=== PATIENT | male | born 1965 | race Caucasian/White ===

== ENCOUNTER → 2016-08-17 09:44 | Outpatient (CLI) | payer BC | END | disposition home or self-care (01) | LOC: D.MRI 09:44 | DX: M54.16 Radiculopathy, lumbar region (principal) ==

== ENCOUNTER → 2016-11-26 12:45 | Outpatient (CLI) | payer BC | END | disposition home or self-care (01) | LOC: D.ER 12:45 | DX: T14.8 Other injury of unspecified body region (principal) ==

== ENCOUNTER 2016-12-15 18:33 | Emergency (ER) | payer BC ==
[2016-12-15 20:10] LABS: BASOPHILS 0.2 % (0-2); EOSINOPHILS 1.7 % (0-7); HEMATOCRIT 38.1 % (42.0-54.0); HEMOGLOBIN 11.7 g/dL (13.5-17.5); IMMATURE GRANULOCYTES 0.1 % (0-5); LYMPHOCYTES 22.8 % (15-50); MCH 22.9 pg (26.0-34.0); MCHC 30.7 g/dL (31.0-37.0); MCV 74.4 fL (80.0-100.0); MEAN PLATELET VOLUME 9.6 fL (7.4-10.4); MONOCYTES 6.3 % (2-11); NEUTROPHILS 68.9 % (40-80); PLATELET COUNT 291 10x3/uL (130-400); RBC 5.12 10x6/uL (4.20-6.10); WBC 8.1 10x3/uL (4.8-10.8)
[2016-12-15 20:21] LABS: INR 1.01 (0.85-1.17); PROTIME 13.1 SECONDS (11.6-15.0)
[2016-12-15 20:28] LABS: ALBUMIN 3.8 g/dL (3.4-5.0); ALKALINE PHOSPHATASE 110 U/L (46-116); ALT (SGPT) 26 U/L (10-68); BILIRUBIN - TOTAL 0.31 mg/dL (0.2-1.3); CALC OSMOLALITY 278 mosm/kg (275-300); CALCIUM 9.3 mg/dL (8.5-10.1); CARBON DIOXIDE 25.3 mmol/L (21.0-32.0); CHLORIDE - SERUM 102 mmol/L (98-107); CREATININE - SERUM 1.2 mg/dL (0.6-1.3); GLUCOSE 98 mg/dL (74-106); POTASSIUM - SERUM 3.8 mmol/L (3.5-5.1); PROTEIN - SERUM 8.1 g/dL (6.4-8.2); SODIUM 140 mmol/L (136-145); UREA NITROGEN 12 mg/dL (7-18); eGFR NON AFRICAN AMERICAN 67 mL/min (90-120)
[2016-12-15 20:41] LABS: CREATINE KINASE 118 UL (21-232); PRO BNP 132 pg/mL (0-125); TROPONIN-I < 0.017 ng/mL (0.000-0.060)
== END 2016-12-15 20:43 | disposition home or self-care (01) ==
LOC: D.ER 18:33
PROVIDERS: Nurse Practitioner Family
DX: S81.801A Unspecified open wound, right lower leg, initial encounter (principal); X58.XXXA Exposure to other specified factors, initial encounter; Y93.89 Activity, other specified; Y92.89 Other specified places as the place of occurrence of the external cause

== ENCOUNTER → 2017-03-24 10:24 | Outpatient (CLI) | payer BC | END | disposition home or self-care (01) | LOC: D.RAD 10:24 | DX: R06.02 Shortness of breath (principal) ==

== ENCOUNTER → 2017-04-29 12:56 | Outpatient (CLI) | payer BC ==
[2017-04-29 15:40] LABS: CREATININE - SERUM 0.9 mg/dL (0.6-1.3)
== END | disposition home or self-care (01) ==
LOC: D.LABREF 12:56
PROVIDERS: Student in an Organized Health Care Education/Training Program
DX: S71.001A Unspecified open wound, right hip, initial encounter (principal)

== ENCOUNTER → 2017-05-06 10:59 | Outpatient (CLI) | payer BC ==
[2017-05-06 12:43] LABS: CREATININE - SERUM 1.1 mg/dL (0.6-1.3); VANCOMYCIN - TROUGH 9.4 ug/mL (10.0-20.0)
== END | disposition home or self-care (01) ==
LOC: D.LABREF 10:59
PROVIDERS: Student in an Organized Health Care Education/Training Program
DX: Z51.81 Encounter for therapeutic drug level monitoring (principal); Z79.2 Long term (current) use of antibiotics

== ENCOUNTER → 2017-05-14 10:35 | Outpatient (CLI) | payer BC ==
[2017-05-14 11:31] LABS: BASOPHILS 0.5 % (0-2); EOSINOPHILS 5.3 % (0-7); HEMATOCRIT 34.9 % (42.0-54.0); IMMATURE GRANULOCYTES 0.5 % (0-5); MCH 25.1 pg (26.0-34.0); MCHC 31.5 g/dL (31.0-37.0); MCV 79.5 fL (80.0-100.0); MEAN PLATELET VOLUME 10.9 fL (7.4-10.4); MONOCYTES 14.1 % (2-11); NEUTROPHILS 63.6 % (40-80); RBC 4.39 10x6/uL (4.20-6.10); RDW 15.1 % (11.5-14.5); WBC 4.2 10x3/uL (4.8-10.8)
[2017-05-14 11:42] LABS: PLATELET COUNT 226 10x3/uL (130-400)
[2017-05-14 11:45] LABS: CREATININE - SERUM 0.9 mg/dL (0.6-1.3); VANCOMYCIN - TROUGH 10.1 ug/mL (10.0-20.0)
== END | disposition home or self-care (01) ==
LOC: D.LABREF 10:35
PROVIDERS: Student in an Organized Health Care Education/Training Program
DX: Z51.81 Encounter for therapeutic drug level monitoring (principal); Z79.2 Long term (current) use of antibiotics

== ENCOUNTER → 2018-06-06 12:33 | Outpatient (CLI) | payer BC | END | disposition home or self-care (01) | LOC: D.MRI 12:33 | PROVIDERS: ATTEND Family Medicine | DX: M54.16 Radiculopathy, lumbar region (principal) ==

== ENCOUNTER → 2019-07-02 13:15 | Outpatient (CLI) | payer MEDICARE, BC ==
--- NOTE | 2019-07-05 11:53 | ST ---
PATIENT:ARNALDO HANDY MEDICAL RECORD: [id number] SEX: M LOCATION:[facility] ORDER #: ADMISSION DATE: 07/02/19 AGE OF PATIENT: 54 REFERRING PHYSICIAN: INTERPRETING PHYSICIAN: HOWARD RUVALCABA MD DATE OF SERVICE: 07/02/2019 TREADMILL REPORT TECHNIQUE: Baseline ECG is normal. Exercised for 10 minutes on Kristofer protocol. Maximum heart rate 151 beats per minute, greater than 85% maximum predicted. No ECG changes of ischemia. No symptoms of ischemia. Normal blood pressure response to exercise. No arrhythmias noted. Good exercise tolerance for age. TRANSINT:[id number] Voice Confirmation ID: [id number] DOCUMENT ID: [id number] HOWARD RUVALCABA MD at 1153 CC: [id number] DICTATION DATE: 07/03/19 1336 VIDEO ENGINEER: 07/03/19 1345 DEP CLI 07/02/[address] [id number]
== END | disposition home or self-care (01) ==
LOC: D.HCCARDIO 13:15
PROVIDERS: ATTEND Internal Medicine Interventional Cardiology
DX: I20.9 Angina pectoris, unspecified (principal)

== ENCOUNTER → 2020-01-10 15:33 | Outpatient (CLI) | payer MEDICARE, BC | END | disposition home or self-care (01) | LOC: D.RAD 15:33 | PROVIDERS: ATTEND Family Medicine | DX: M54.16 Radiculopathy, lumbar region (principal); M25.552 Pain in left hip; M54.12 Radiculopathy, cervical region ==

== ENCOUNTER → 2020-01-23 08:57 | Outpatient (CLI) | payer MEDICARE, BC ==
--- NOTE | ~2020-01-23 | HEMODYNAMI ---
PATIENT:RONNI HANDY MEDICAL RECORD: [id number] : 61 [id number] ADMISSION DATE: 01/23/20 Generatedon:01/23/202014:03 Patient name: RONNI HANDY Patient #: [id number] SSN: D OB: 1965 Date of study: 01/23/2020 Page: Of Hemodynamic Procedure Report Patient Data Patient Demographics Procedure consent was obtained First Name: RONNI Gender: Male Last Name: ROZINA : 1965 [facility] Initial: E Age: 54 year(s) Patient #: [id number] Race: Unknown Additional ID: [id number] Contact details Address: [address] [place] [address] State: [place] City: [facility] Zip code: [address] Admission Admission Data Admission Date: 01/23/2020 Admission Time: 8:57 Procedure Procedure Types Cath Procedure Peripheral Cath Diagnostic Procedure Miscellaneous Aspiration/Injection (Joint) Procedure Description Procedure Date Procedure Date: 01/23/2020 Procedure Start Time: 10:26 Procedure Staff Name Function Kosta Rainey RT Scrub Ronni Harrison MD Performing Physician Arielle Barnes RT Monitor Alondra PACKER RN Nurse Procedure Data Cath Procedure Fluoroscopy Diagnostic fluoroscopy Total fluoroscopy Time: 0.3 time: 0.3 min min Diagnostic fluoroscopy Total fluoroscopy dose: 3.5 dose: 3.5 mGy mGy Contrast Material Contrast Material Type Amount (ml) Isovue 200 10 Hemodynamics Rest Pre Cath Intra NCS Post Cath Procedure Log Time Note 9:31:00 Procedure Status Elective Heart Cath (OP). 9:31:04 Kosta Rainey RT (R) (CV) sent for patient. Start room use. 9:31:08 Time tracking: Regular hours (M-F 7:00 - 5:00) 9:31:24 Patient received from Outpatients to IR Alert and oriented. Tansferred to table in Supine position. 9:31:29 Signed procedure consent form obtained from patient. 9:31:32 Correct patient and procedure confirmed by team. 9:33:59 Pre-procedure instructions explained to patient. 9:34:00 Pre-op teaching completed and patient verbalized understanding. 9:34:16 PT STATES NO ALLERGIES 9:34:21 Is patient on blood thinner?No 9:34:48 Left Hip was prepped with betadine and draped in sterile fashion. 10:25:22 Physician arrived 10:25:23 Final Timeout: patient, procedure, and site verified with staff and physician. All members of the team are in agreement. 10:25:23 --------ALL STOP TIME OUT------ 10:25:26 Left groin site verified by team. 10:25:32 Sedation plan: Local Anesthetic Medication:Lidocaine 10:26:01 Procedure started. 10:26:02 Full Disclosure recording started 10:26:08 Local anesthetic to Left Hip with Lidocaine 1% by Ronni Harrison MD.INITIAL ACCESS ONLY 10:26:10 SAFE-T PLUS MYELOGRAM TRAY opened to sterile field. 10:32:33 Procedure ended.(Physican Out) 10:32:37 Fluoroscopy time 00.30 minutes. 10:32:42 Flurop Dose total: 3.5 10:33:05 Contrast amount:Isovue 200 10ml. 10:33:43 BANDAIDE APPLIED TO SITE SITE STABLE PT SENT HOME 10:34:20 Full Disclosure recording stopped 10:39:42 Fluoroscopy dose: 3.5 mGy Device Usage Item Name Manufacture Quantity Catalog Hospital Part Current Minimal Lot# / Number Charge Number Stock Stock Serial# Code SAFE-T [employer]usion 1 [id number] PLUS MYELOGRAM TRAY Signature Audit [place] Stage Time Signature Unsigned Intra-Procedure 01/23/2020 Kosta Kosta [place]ield RT 10:34:09 AM [place] RT (R) (CV) 01/23/2020 (R) (CV) 10:39:16 AM Intra-Procedure 01/23/2020 Kosta Kosta [place] RT 10:40:58 AM [place] RT (R) (CV) 01/23/2020 (R) (CV) 2:02:49 PM Intra-Procedure 01/23/2020 Kosta 2:03:36 PM [place] RT (R) (CV) [place] [id number] [place] [address]
== END | disposition home or self-care (01) ==
LOC: D.RAD 08:57 → D.MRI 11:30
PROVIDERS: ATTEND Family Medicine
DX: M54.12 Radiculopathy, cervical region (principal); M25.552 Pain in left hip; M54.16 Radiculopathy, lumbar region

== ENCOUNTER → 2020-07-02 09:57 | Outpatient (CLI) | payer MEDICARE, BC ==
[2020-03-19 07:59] VITALS: BMI 31.3
[~2020-07-02 09:57] MED LIST: ACETAMINOPHEN500 M1 PO; BACLOFEN10 MG PO; MOBIC7.5 MG PO; Multivitamin; potassium PO
[2020-07-02 10:18] LABS: BASOPHILS 0.5 % (0-2); EOSINOPHILS 2.8 % (0-7); HEMATOCRIT 42.8 % (42.0-54.0); HEMOGLOBIN 13.7 g/dL (13.5-17.5); LYMPHOCYTE ABS# 1.26 10x3/uL (1.32-3.57); LYMPHOCYTES 22.3 % (15-50); MCH 27.5 pg (26.0-34.0); MCV 85.9 fL (80.0-100.0); MEAN PLATELET VOLUME 10.3 fL (7.4-10.4); MONOCYTES 9.6 % (2-11); NEUTROPHIL ABS# 3.65 10x3/uL (1.78-5.38); NEUTROPHILS 64.8 % (40-80); PLATELET COUNT 221 10x3/uL (130-400); RBC 4.98 10x6/uL (4.20-6.10); RDW 13.9 % (11.5-14.5); WBC 5.6 10x3/uL (4.8-10.8)
[2020-07-02 10:47] LABS: ALBUMIN 3.8 g/dL (3.4-5.0); ANION GAP 11.4 mmol/L (8-16); BILIRUBIN - TOTAL 0.25 mg/dL (0.2-1.3); CALCIUM 9.3 mg/dL (8.5-10.1); CARBON DIOXIDE 27.9 mmol/L (21.0-32.0); CHOL - HDL RATIO 2.9 ratio (2.3-4.9); CREATININE - SERUM 1.1 mg/dL (0.6-1.3); LDL-HDL RATIO 1.6 ratio (1.5-3.5); POTASSIUM - SERUM 4.3 mmol/L (3.5-5.1); PROTEIN - SERUM 7.6 g/dL (6.4-8.2); THYROID STIMULATING HORMONE 2.1 uIU/mL (0.36-3.74)
[2020-07-02 10:48] LABS: SCREENING PSA (YEARLY) 3.21 ng/mL (0.00-4.00)
== END | disposition home or self-care (01) ==
LOC: D.LAB 09:57
PROVIDERS: ATTEND Family Medicine
DX: R73.09 Other abnormal glucose (principal); R79.89 Other specified abnormal findings of blood chemistry; Z13.1 Encounter for screening for diabetes mellitus; R53.82 Chronic fatigue, unspecified; N40.0 Benign prostatic hyperplasia without lower urinary tract symptoms; G62.9 Polyneuropathy, unspecified; K21.9 Gastro-esophageal reflux disease without esophagitis